=== PATIENT | female | born 1990 | race American Indian/Alaskan Native ===

== ENCOUNTER 2018-09-23 17:28 | Emergency (ER) | payer SELFPAY ==
--- NOTE | 2018-09-23 17:39 | Emergency Department Report ---
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 Due to findings the following was ordered: EKG, CXR with XR right ribs ED Disposition for MSE Condition: Stable Instructions: Abdominal Pain (ED)
[2018-09-23 17:44] VITALS: BP 123/81
[2018-09-23 18:57] LABS: Bacteria,Urine 1+ /HPF (Negative); Bilirubin,Urine NEG (Negative); Blood,Urine LG (Negative); Color,Urine Yellow (Yellow); Protein,Urine <15 mg/dL mg/dL (Negative); Urobilinogen,Urine < 2.0 mg/dL (<2.0); WBC,Urine < 1.0 /HPF (0.0-6.0)
[2018-09-23 19:06] LABS: HCG Qualitative,Urine Negative (Negative)
--- NOTE | 2018-09-23 21:16 | XRay Report ---
PROCEDURE: XR RIBS UNI W PA CHEST 3+V RT TECHNIQUE: Bilateral rib radiographs, minimum of 4 views, including PA projection. HISTORY: right rib pain, CP COMPARISONS: None . FINDINGS: Heart: Normal . Mediastinum/Vessels: Normal . Lungs: Normal . Pleural space: Normal . Pneumothorax: None . Bony thorax/ribs: No acute or displaced rib fractures. IMPRESSION: Normal Examination . This document is electronically signed by Priyank Coelho MD., September 23 2018 09:14:58 PM ET
[2018-09-23] MEDS ORDERED: NACL 0.9% 1000 ML 1,000 ML IV ONE (21:40)
[2018-09-23] MEDS ORDERED: TORADOL IV ONE (21:40)
[2018-09-23] MEDS ORDERED: ZOFRAN IV ONE (21:40)
--- NOTE | 2018-09-23 21:41 | Emergency Department Report ---
ED Abdominal Pain HPI - General Chief Complaint: Abdominal Pain Stated Complaint: STOMACH PAIN UNDER RT RIB CAGE Time Seen by Provider: 09/23/18 17:35 Source: patient Mode of arrival: Ambulatory Limitations: No Limitations - History of Present Illness Initial Comments: There is a 28-year-old -[place] female who presents for right upper quadrant pain radiating to back with some nausea /vomiting . pain is exacerbated by movement and palpation pain is relieved by nothing , pt is a daily Marijuana smoker last use today "makes pain better" Complaint: abdominal pain Onset/Timin -: week(s) Location: RUQ Radiation: RUQ, back Migration to: no migration Severity: moderate Severity scale (0 -10): 10 Quality: sharp Consistency: intermittent Worsens With: eating, movement Associated Symptoms: nausea, vomiting, chills - Related Data LMP Date: 09/23/18 Previous Rx's Medication Instructions Recorded Last Taken Type Ibuprofen Oral Liqd [Motrin] 400 mg PO TID PRN #300 ml 06/03/16 Unknown Rx Oseltamivir [Tamiflu] 75 mg PO BID #10 cap 06/03/16 Unknown Rx Promethazine /Codeine 5 ml PO Q12H PRN #70 ml 06/03/16 Unknown Rx [Phenergan/Codeine 6.25-10 mg/5Ml] Naproxen 500 mg PO BID PRN #30 tablet 09/23/18 Unknown Rx Omeprazole 20 mg PO DAILY #30 tablet. 09/23/18 Unknown Rx Sucralfate [Carafate] 1 gm PO ACHS 7 Days #28 tablet 09/23/18 Unknown Rx Allergies Allergy/AdvReac Type Severity Reaction Status Date / Time No Known Allergies Allergy Verified 09/23/18 17:30 ED Review of Systems ROS: Stated complaint: STOMACH PAIN UNDER RT RIB CAGE Other details as noted in HPI Constitutional: denies: chills, fever Eyes: denies: eye pain, eye discharge, vision change ENT: denies: ear pain, throat pain Respiratory: denies: cough, shortness of breath, wheezing Cardiovascular: denies: chest pain, palpitations Endocrine: no symptoms reported Gastrointestinal: abdominal pain, nausea. denies: diarrhea, constipation, hematemesis, melena, hematochezia Genitourinary: denies: urgency, dysuria, discharge Musculoskeletal: denies: back pain, joint swelling, arthralgia Skin: denies: rash, lesions Neurological: denies: headache, weakness, paresthesias Psychiatric: denies: anxiety, depression Hematological/Lymphatic: denies: easy bleeding, easy bruising ED Past Medical Hx - Past Medical History Previous Medical History?: No - Surgical History Past Surgical History?: No - Social History Smoking Status: Never Smoker Substance Use Type: Alcohol, Marijuana - Medications Home Medications: Home Medications Medication Instructions Recorded Confirmed Last Taken Type Ibuprofen Oral Liqd [Motrin] 400 mg PO TID PRN #300 ml 06/03/16 Unknown Rx Oseltamivir [Tamiflu] 75 mg PO BID #10 cap 06/03/16 Unknown Rx Promethazine /Codeine 5 ml PO Q12H PRN #70 ml 06/03/16 Unknown Rx [Phenergan/Codeine 6.25-10 mg/5Ml] Naproxen 500 mg PO BID PRN #30 tablet 09/23/18 Unknown Rx Omeprazole 20 mg PO DAILY #30 tablet. 09/23/18 Unknown Rx Sucralfate [Carafate] 1 gm PO ACHS 7 Days #28 tablet 09/23/18 Unknown Rx ED Physical Exam - General Limitations: No Limitations General appearance: alert, in no apparent distress - Head Head exam: Present: atraumatic, normocephalic - Eye Eye exam: Present: normal appearance, PERRL, EOMI Pupils: Present: normal accommodation - ENT ENT exam: Present: mucous membranes moist - Neck Neck exam: Present: normal inspection, full ROM. Absent: lymphadenopathy, thyromegaly - Respiratory Respiratory exam: Present: normal lung sounds bilaterally, chest wall tenderness (righ lateral chest wall ). Absent: respiratory distress, wheezes, stridor - Cardiovascular Cardiovascular Exam: Present: normal rhythm, tachycardia, normal heart sounds. Absent: systolic murmur, diastolic murmur, rubs, gallop - GI/Abdominal GI/Abdominal exam: Present: soft, normal bowel sounds - Rectal Rectal exam: Present: deferred - External exam: Present: normal external exam - Extremities Exam Extremities exam: Present: normal inspection, full ROM, normal capillary refill. Absent: tenderness, calf tenderness - Back Exam Back exam: Present: normal inspection, full ROM. Absent: tenderness, CVA tenderness (R), CVA tenderness (L), muscle spasm, rash noted - Neurological Exam Neurological exam: Present: alert, oriented X3, CN II-XII intact, normal gait - Psychiatric Psychiatric exam: Present: normal affect, normal mood - Skin Skin exam: Present: warm, dry, intact, normal color. Absent: rash ED Course Vital Signs 09/23/18 09/23/18 17:43 23:42 Temperature 98.2 F Pulse Rate 90 Respiratory 16 16 Rate Blood Pressure 123/81 O2 Sat by Pulse 100 98 Oximetry ED Medical Decision Making - Lab Data Result diagrams: 09/23/18 21:47 09/23/18 21:47 - Radiology Data Radiology results: report reviewed, image reviewed Referring Physician: RISSA LYLE Patient Name: PRITI NAM Date of : 1990 Sex: Female Report Date: 2018-09-23 Report Status: Finalized Findings [place] [id number] XRay Report Signed Patient: PRITI NAM MR#: [id number] : 1990 Acct:[id number] Age/Sex: 28 / F ADM Date: 09/23/18 Loc: ED Attending Dr: Ordering Physician: DAVID YUAN Date of Service: 09/23/18 Procedure(s): XR ribs UNI w PA Chest 3+V RT Accession Number(s): [id number] cc: DAVID YUAN Fluoro Time In Minutes: PROCEDURE: XR RIBS UNI W PA CHEST 3+V RT TECHNIQUE: Bilateral rib radiographs, minimum of 4 views, including PA projection. HISTORY: right rib pain, CP COMPARISONS: None . FINDINGS: Heart: Normal . Mediastinum/Vessels: Normal . Lungs: Normal . Pleural space: Normal . Pneumothorax: None . Bony thorax/ribs: No acute or displaced rib fractures. IMPRESSION: Normal Examination . This document is electronically signed by Dex Coelho MD., September 23 2018 09:14:58 PM ET Transcribed By: [facility] [place] Dictated By: DEX COELHO Electronically Authenticated By: DEX COELHO Signed Date/Time: 09/23/182115 DD/ 39 TD/TT: 09/23/182049 Findings [address] [place] [address] Ultrasound Report Signed Patient: PRITI NAM MR#: [id number] : 1990 Acct:[id number] Age/Sex: 28 / F ADM Date: 09/23/18 Loc: ED Attending Dr: Ordering Physician: ABHIJIT GRANT NP Date of Service: 09/23/18 Procedure(s): US abdomen limited Accession Number(s): [id number] cc: ABHIJIT GRANT NP PROCEDURE: US ABDOMEN LIMITED TECHNIQUE: Real-time sonography was performed of the right upper quadrant with image documentation. HISTORY: RUQ COMPARISONS: None . FINDINGS: Liver, visualized pancreatic head and body and right kidney demonstrate normal echotexture. Right kidney measures 9 x 5 x 3 cm without calculi or hydronephrosis. Gallbladder is partially distended with mild degree of sludge. There is no wall thickening or pericholecystic fluid collections. No calculi are identified. Common duct is 3 mm in caliber. Proximal abdominal aorta is of normal caliber measuring 11 mm.. IMPRESSION: Mild degree gallbladder sludge is identified. Otherwise unremarkable study.. This document is electronically signed by Dex Coelho MD., September 23 2018 10:42:11 PM ET Transcribed By: [facility] [place] Dictated By: DEX COELHO Electronically Authenticated By: DEX COELHO Signed Date/Time: 09/23/182243 DD/ 39 TD/TT: 09/23/182222 - Medical Decision Making cxr: normal no infiltrates no opaciteis no infiltrates , US: Gallbladder, noted no gallstones no thickening , pain is now improved plan: omeprazole, Carafate, naproxen follow up with pcp in 2-3 days , follow up with GI stop Marijuana use, return to ed if symptoms worsen, pt verbalized agreement and understanding of discharge plan pt for dc to home in stable condition at this time, pt is curently tolerating po intake without n/v Critical care attestation.: If time is entered above; I have spent that time in minutes in the direct care of this critically ill patient, excluding procedure time. ED Disposition Clinical Impression: Abdominal pain Qualifiers: Abdominal location: right upper quadrant Qualified Code(s): R10.11 - Right upper quadrant pain Acid reflux Qualifiers: Esophagitis presence: without esophagitis Qualified Code(s): K21.9 - Gastro- esophageal reflux disease without esophagitis Disposition: TO HOME OR SELFCARE Is pt being admited?: No Does the pt Need Aspirin: No Condition: Stable Instructions: Gastroesophageal Reflux Disease (ED), Abdominal Pain (ED) Prescriptions: Sucralfate [Carafate] 1 gm PO ACHS 7 Days #28 tablet Naproxen 500 mg PO BID PRN #30 tablet PRN Reason: pain Omeprazole 20 mg PO DAILY #30 tablet. Referrals: [facility] [Outside] - 3-5 Days [facility] [Provider Group] - 3-5 Days Forms: Work/School Release Form(ED) Time of Disposition: 00:45
--- NOTE | 2018-09-23 22:44 | Ultrasound Report ---
PROCEDURE: US ABDOMEN LIMITED TECHNIQUE: Real-time sonography was performed of the right upper quadrant with image documentation. HISTORY: RUQ COMPARISONS: None . FINDINGS: Liver, visualized pancreatic head and body and right kidney demonstrate normal echotexture. Right kid shanice measures 9 x 5 x 3 cm without calculi or hydronephrosis. Gallbladder is partially distended with mild degree of sludge. There is no wall thickening or pericholecystic fluid collections. No calculi a re identified. Common duct is 3 mm in caliber. Proximal abdominal aorta is of normal caliber measurin g 11 mm.. IMPRESSION: Mild degree gallbladder sludge is identified. Otherwise unremarkable study.. This document is electronically signed by Priyank Coelho MD., September 23 2018 10:42:11 PM ET
[2018-09-23 22:49] LABS: Hematocrit 36.4 % (30.3-42.9); Hemoglobin 12.1 gm/dl (10.1-14.3); Mean Corpuscular HGB Conc 33 % (30-34); Mean Corpuscular Volume 86 fl (79-97); Platelet Count 264 K/mm3 (140-440); Red Blood Count 4.25 M/mm3 (3.65-5.03); Red Cell Distribution Width 13.6 % (13.2-15.2)
[2018-09-23 22:50] LABS: Basophils % (Auto) 0.5 % (0.0-1.8); Eosinophils # (Auto) 0.1 K/mm3 (0.0-0.4); Eosinophils % (Auto) 1.8 % (0.0-4.3); Lymphocytes # (Auto) 1.5 K/mm3 (1.2-5.4); Lymphocytes % (Auto) 18.6 % (13.4-35.0); Monocytes # (Auto) 0.7 K/mm3 (0.0-0.8); Monocytes % (Auto) 9.5 % (0.0-7.3)
[2018-09-24 00:39] LABS: Alanine Aminotransferase 9 units/L (7-56); Albumin 4.2 g/dL (3.9-5); BUN/Creatinine Ratio 12; Blood Urea Nitrogen 7 mg/dL (7-17); Calcium 9.4 mg/dL (8.4-10.2)
[2018-09-24 04:43] LABS: Hemolysis Index 1
== END 2018-09-24 01:05 | disposition home or self-care (01) ==
LOC: ED 17:28
DX: K21.9 Gastro-esophageal reflux disease without esophagitis (principal); F17.200 Nicotine dependence, unspecified, uncomplicated
CPT/HCPCS: 36415; 71101; 76705; 80053; 81001; 81025; 83690; 85025; 93005; 93010; 96361; 96374; 96375; 99284; J1885; J2405; J7030